=== PATIENT | female | born 1995 | race Caucasian/White ===

== ENCOUNTER 2021-04-07 06:27 | Observation (INO) | payer BC, SELFPAY ==
[2021-04-07] VITALS (34 sets, daily range): BP systolic 111–135; BP diastolic 63–96; PULSE 62–97; RESP 10–21; TEMP 36.1–37.2; O2SAT 0–100; BMI 20.5
--- NOTE | ~2021-04-07 | CT_ITS ---
EXAMINATION: CT abdomen pelvis w con INDICATION: Right lower quadrant pain TECHNIQUE: Computed tomographic images of the abdomen and pelvis were obtained after the administrati on of 100 cc of Omnipaque 350 intravenous contrast. The dose-length product (DLP) was 206.03 mGy-cm. Automated exposure control and iterative reconstruction technique were employed. COMPARISON: None available FINDINGS: The lung bases are clear. The heart size is normal. The liver, spleen, pancreas, gallbladde r, and adrenal glands are normal. The kidneys are unremarkable. No pathologically enlarged abdominal or pelvic lymph nodes are identified. There is no free intraperitoneal gas or evidence of bowel obstr uction. The dilated appendix measures up to 9 mm. There is edematous stranding of the periappendiceal fat. No perforation or periappendiceal abscess is identified. There is a small amount of inflammator y fluid of the right lower quadrant tracking into the pelvis. IMPRESSION: 1. Acute appendicitis. These findings were discussed with Dr. Eric Adams MD in the Emergency Department at 0848 hours on 04/07/2021. Reviewed, dictated and finalized at location B.
--- NOTE | 2021-04-07 07:07 | PC.NURSE ---
attempted to obtain urine. Pt states she does not have to pee at this time.
[2021-04-07 07:21] LABS: Basophils Absolute Auto 0.1 K/mm3 (0.0-0.1); Basophils Percent Auto 0.3 % (0.2-1.2); Hematocrit 39.6 % (37.0-47.0); Hemoglobin 13.7 g/dL (12.0-15.0); Immature Granulocyte Absolute 0.11 K/mm3 (0.00-0.031); Immature Granulocyte Percent A 0.6 % (0-0.5); Lymphocytes Absolute Auto 0.66 K/mm3 (0.9-3.2); Lymphocytes Percent Auto 3.8 % (18.3-44.2); Mean Corpuscular HGB Conc 34.6 g/dl (32-36); Mean Corpuscular Hemoglobin 31.5 pg (26-34); Mean Platelet Volume 10.4 fl (7.4-10.4); Monocytes Absolute Auto 1.1 K/mm3 (0.1-0.6); Monocytes Percent Auto 6.1 % (2.6-8.5); Neutrophils Absolute Auto 15.6 K/mm3 (1.3-6.7); Neutrophils Percent Auto 89.2 % (45.5-73.1); Platelet Count Result 236 k/mm3 (150-375); Red Blood Count 4.35 M/mm3 (4.2-5.4); Red Cell Distribution Width 12.2 % (11.5-14.5); White Blood Count 17.5 K/mm3 (4.5-10.0)
[2021-04-07 07:26] LABS: Add Urine Microscopic? YES; Appearance Urine Cloudy (Clear); Bacteria Urine Trace /hpf; Bilirubin Urine Negative (Negative); Blood Urine Negative (Negative); Color Urine Yellow (Yellow); Glucose Urine UA Negative (Negative); Ketones Urine 1+ mg/dL (Negative); Leukocyte Esterase Ur Negative LEU/UL (Negative); Mucus Urine Heavy /lpf; Nitrate Urine Negative (Negative); Protein Urine 2+ mg/dL (Negative); Squamous Epithelial Cell Urine Many /hpf (Few); Urobilinogen Urine Negative mg/dL (<2.0)
[2021-04-07 07:33] LABS: Alanine Aminotransferase 12 U/L (4-35); Albumin Level 4.4 g/dL (3.5-5.1); Alkaline Phosphatase 54 U/L (38-126); Anion Gap 10 mmol/L (8-16); Aspartate Amino Transferase 27 U/L (14-36); Bilirubin,Total 0.8 mg/dL (0.2-1.3); Blood Urea Nitrogen 6 mg/dL (7-17); Calcium 9.6 mg/dL (8.4-10.2); Carbon Dioxide 24 mmol/L (22-30); Chloride 102 mmol/L (98-107); Estimated CRCL calculation 104 ml/min; Estimated Glomerular Filt Rate > 60; Glucose 137 mg/dL (65-105); Lipase 25 U/L (23-300); Potassium 3.4 mmol/L (3.4-5.0); Sodium 136 mmol/L (137-145)
[2021-04-07] MEDS: MORPHINE SULFATE (*CRX) 4 MG/ML INJ IV PUSH ×3 (07:35→17:39)
[2021-04-07] MEDS: ONDANSETRON INJ 4 MG/2 ML VIAL IV PUSH ×2 (07:35→17:39)
[2021-04-07 08:15] LABS: Beta HCG Quantitative < 2.39 mIU/ML
--- NOTE | 2021-04-07 08:47 | ED.ABDPAIN ---
HPI - Abdominal Pain General Chief Complaint: Abdominal Pain Stated Complaint: Lower abd pain Time Seen by Provider: 04/07/21 07:01 History of Present Illness HPI narrative: Patient is a 25-year-old female who presents ER with right lower quadrant abdominal pain. Symptoms began early this morning. Persistent and without radiation. Worse with twisting and moving. Sharp with moving and aching when sitting still. No fevers or chills. Denies nausea or vomiting or diarrhea. Has not had similar symptoms previously. No vaginal discharge/bleeding. Does not think that she is but reports its possibility. Related Data Home Medications Medication Instructions Recorded Confirmed No Home Medications 04/07/21 04/07/21 Allergies Allergy/AdvReac Type Severity Reaction Status Date / Time No Known Allergies Allergy Verified 04/07/21 14:02 Review of Systems Review of Systems: All systems reviewed & are unremarkable except as noted in HPI and below Constitutional: Constitutional: Denies chills and Denies fever(s) Gastrointestinal: Gastrointestinal: Reports abdominal pain, Denies diarrhea, Denies nausea and Denies vomiting Genitourinary: Genitourinary: Denies nocturia, Denies dysuria and Denies flank pain PMFSH Past Medical History Medical History (Updated 04/07/21 @ 17:13 by Eric Adams MD) Chest wall hematoma Healthy female adult Surgical History Surgical History (Updated 04/07/21 @ 14:15 by Rony Bergeron MD) [place] teeth extracted Family History Family History Father Hypertension Grandparent Family history of psoriasis Family history of malignant neoplasm of ovary Hypertension Cirrhosis History of blood clots Diabetes mellitus Social History Social History Social History: 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 Lifelong non-smoker. Drinks alcohol only occasionally/socially. No illicit drug use. Patient wishes to be a full code. Smoking status: Never smoker Second hand tobacco smoke exposure: Yes Alcohol intake: current Drinks per week: 4 Substance use: never Substance use type: does not use Spiritual care concerns: No Exam Narrative: Exam Narrative: GENERAL: Well-appearing, well-nourished, and in no acute distress. HEAD: Normocephalic, atraumatic. ENT: Mucous membranes moist. CHEST: Clear to auscultation. No respiratory distress. HEART: Regular rate and rhythm. Normal peripheral pulses. ABDOMEN: Soft, TTP in the RLQ at McBurney's point, nondistended, normal active bowel sounds. EXTREMITIES: Normal range of motion. No edema. SKIN: Warm, dry, no rash. NEURO: Alert and oriented x3. PSYCH: Normal mood and affect. Course Course Emergency Course: Admit to general surgery. Zosyn ordered. Patient will go to the operating room today and has been n.p.o. since this morning. Vital Signs Vital signs: Vital Signs Temperature 97.9 F 04/07/21 06:36 Pulse Rate 74 04/07/21 06:36 Respiratory Rate 20 04/07/21 06:36 Blood Pressure 131/96 H 04/07/21 06:36 Pulse Oximetry 100 04/07/21 06:36 Temperature 97.5 F L 04/07/21 16:10 Pulse Rate 71 04/07/21 17:05 Respiratory Rate 14 04/07/21 17:05 Blood Pressure 128/79 04/07/21 17:05 Pulse Oximetry 96 04/07/21 17:05 MDM - Abdominal Pain Lab Data Result diagrams: 04/07/21 07:08 04/07/21 07:08 Labs: Lab Results 04/07/21 04/07/21 04/07/21 Range/Units 07:08 07:08 07:08 WBC 17.5 H (4.5-10.0) K/mm3 RBC 4.35 (4.2-5.4) M/mm3 Hgb 13.7 (12.0-15.0) g/dL Hct 39.6 (37.0-47.0) % MCV 91.0 (80-100) fl MCH 31.5 (26-34) pg MCHC 34.6 (32-36) g/dl RDW 12.2 (11.5-14.5) % Plt Count 236 (150-375) k/mm3 MPV 10.4 (7.4-10.4) fl Immature Gran % (Auto) 0.6 H (0-0.5) % Neut % (Auto) 89.2 H (45.5-
--- NOTE | 2021-04-07 10:56 | PM.IMHP ---
H&P: HPI History of Present Illness Date/Time: 04/07/21 10:56 Chief Complaint: RLQ abdominal pain Narrative: This is a 25-year-old otherwise healthy female, who presented to the ER this morning with complaints of RLQ abdominal pain. She reports an onset of generalized abdominal pain around 3:00 am this morning. Her pain progressively worsened and began to localize to the RLQ. She had associated nausea, vomiting, and chills. Due to the persistent pain, she presented to the ER for evaluation. CT scan of the abdomen and pelvis showed evidence of acute uncomplicated appendicitis. Her labs revealed leukocytosis with a white blood cell count of 17,500. Beta HCG negative. The ER physician consulted our service to evaluate the patient for acute appendicitis. She is now seen in the ER. She reports the IV analgesics have improved her abdominal pain, but it is starting to return. No other complaints at this time. She has been given one dose of IV Zosyn in the ER. Review of Systems Review of Systems: All systems reviewed & are unremarkable except as noted in HPI and below Constitutional: Constitutional: Reports as per HPI, Reports chills, Denies fatigue and Denies fever(s) ENT: Reports system reviewed and no additional complaints, except as documented and Reports Normal hearing present Cardiovascular: Cardiovascular: Reports no additional cardiovascular complaints, Denies chest pain and Denies leg edema Respiratory: Respiratory: Reports no additional respiratory complaints, Denies cough and Denies dyspnea Gastrointestinal: Gastrointestinal: Reports as per HPI, Reports no additional gastrointestinal complaints, Reports abdominal pain, Denies change in bowel habits, Denies change in stool character, Denies constipation, Denies diarrhea and Reports vomiting Genitourinary: Genitourinary: Denies hematuria and Denies dysuria Musculoskeletal: Musculoskeletal: Denies abnormal gait, Denies deformity, Denies joint swelling, Denies numbness and Denies tingling Integumentary/Breasts: Skin/Breast: Denies wounds and Denies jaundice Neurologic: Reports system reviewed and no additional complaints, except as documented, Denies focal weakness, Denies numbness and Denies tingling PMFSH Past Medical History Medical History Healthy female adult Surgical History Surgical History No history of previous surgery Family History Family History Father Hypertension Grandparent Hypertension Family history of psoriasis Family history of malignant neoplasm of ovary Social History Social History Social History: 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 Lifelong non-smoker. Drinks alcohol only occasionally/socially. No illicit drug use. Patient wishes to be a full code. Smoking status: Never smoker Alcohol intake: current Meds Home Medications and Allergies Allergies Allergy/AdvReac Type Severity Reaction Status Date / Time No Known Allergies Allergy Verified 04/07/21 06:40 Vital Signs Vital Signs - 24 hr 04/07/21 06:36 04/07/21 07:40 04/07/21 07:51 Temperature 97.9 F Pulse Rate 74 62 72 Respiratory Rate 20 10 L 15 Blood Pressure 131/96 H 116/75 Pulse Oximetry 100 100 100 04/07/21 08:00 04/07/21 08:01 04/07/21 08:15 Temperature Pulse Rate 67 65 69 Respiratory Rate 15 21 H 18 Blood Pressure 114/78 Pulse Oximetry 95 97 98 04/07/21 08:16 04/07/21 08:43 04/07/21 08:45 Temperature Pulse Rate 78 88 85 Respiratory Rate 16 15 17 Blood Pressure 111/63 Pulse Oximetry 98 100 99 04/07/21 08:46 04/07/21 09:12 04/07/21 09:15 Temperature Pulse Rate 79 97 71 Respiratory Rate 17 19 15 Blood Pressure 124/95 H Pulse Oximetry 99 98 99 04/07/21 09:16 04/07/21 09:30 03/12
--- NOTE | 2021-04-07 12:11 | ADMGEN ---
This patient, Natasha Nicole, was admitted to 2 Medical Room 261-01. Patient/family oriented to hospital policies and general routines including ID bracelet, bed and alarms, visiting hours, pain management, procedures, bathroom and other care routines, personal items, smoking policy, room service/diet, and visiting hours. Information on how to activate the Rapid Response Team has been discussed. Patient/Family are encouraged to report perceived risks to care and to ask questions if they do not understand what they are told or what they should do.
[2021-04-07] MEDS: SODIUM CHLORIDE 0.9% IV 1,000 ML 125 ML IV CONT (12:21)
--- NOTE | 2021-04-07 13:40 | PC.NURSE ---
To OR via stretcher with OR staff. SBAR sent to surgery earlier.
[2021-04-07] MEDS: LACTATED RINGERS 1,000 ML 30 ML IV CONT ×2 (14:00→16:10)
--- NOTE | 2021-04-07 14:15 | WPDANESEPPF ---
Anes - Initial Pre Proc Eval Procedure: Operation Date: 04/07/21 15:00 Proposed Procedures p Laparoscopic Appendectomy - Jessee Rodríguez DO Date/Time: 04/07/21 14:15 Surgeon: Jessee Rodríguez DO Pre Op Diagnosis: appendicitis Patient Data Age: 25 Gender: F Height: 1.63 m Weight: 54.4 kg Last Vital Signs Temp 37.2 C 04/07/21 14:04 Pulse 72 04/07/21 14:04 Resp 16 04/07/21 14:04 BP 123/68 04/07/21 14:04 Pulse Ox 98 04/07/21 14:04 Allergies Allergy/AdvReac Type Severity Reaction Status Date / Time No Known Allergies Allergy Verified 04/07/21 14:02 Home Medications Medication Instructions Recorded Confirmed Type No Home Medications 04/07/21 04/07/21 History Laboratory Tests 04/07/21 04/07/21 04/07/21 07:08 07:08 07:08 WBC 17.5 K/mm3 H K/mm3 (4.5-10.0) RBC 4.35 M/mm3 M/mm3 (4.2-5.4) Hgb 13.7 g/dL g/dL (12.0-15.0) Hct 39.6 % % (37.0-47.0) MCV 91.0 fl fl (80-100) MCH 31.5 pg pg (26-34) MCHC 34.6 g/dl g/dl (32-36) RDW 12.2 % % (11.5-14.5) Plt Count 236 k/mm3 k/mm3 (150-375) MPV 10.4 fl fl (7.4-10.4) Immature Gran % (Auto) 0.6 % H % (0-0.5) Neut % (Auto) 89.2 % H % (45.5-73.1) Lymph % (Auto) 3.8 % L % (18.3-44.2) Gaines % (Auto) 6.1 % % (2.6-8.5) Eos % (Auto) 0.0 % % (0-4.4) Baso % (Auto) 0.3 % % (0.2-1.2) Lymph # (Auto) 0.66 K/mm3 L K/mm3 (0.9-3.2) Gaines # (Auto) 1.1 K/mm3 H K/mm3 (0.1-0.6) Eos # (Auto) 0.0 K/mm3 K/mm3 (0-0.3) Baso # (Auto) 0.1 K/mm3 K/mm3 (0.0-0.1) Abs Immat Gran (auto) 0.11 K/mm3 H K/mm3 (0.00-0.031) Absolute Neuts (auto) 15.6 K/mm3 H K/mm3 (1.3-6.7) Absolute Nucleated RBC 0.0 K/mm3 K/mm3 (0.0-0.012) Nucleated RBC % 0.0 % % (0.0-0.2) Sodium 136 mmol/L L mmol/L (137-145) Potassium 3.4 mmol/L mmol/L (3.4-5.0) Chloride 102 mmol/L mmol/L (98-107) Carbon Dioxide 24 mmol/L mmol/L (22-30) Anion Gap 10 mmol/L mmol/L (8-16) BUN 6 mg/dL L mg/dL (7-17) Creatinine 0.60 mg/dL L mg/dL (0.7-1.0) Estim Creat Clear Calc 104 ml/min ml/min Estimated GFR > 60 (59 - ) Glucose 137 mg/dL H mg/dL (65-105) Calcium 9.6 mg/dL mg/dL (8.4-10.2) Total Bilirubin 0.8 mg/dL mg/dL (0.2-1.3) AST 27 U/L U/L (14-36) ALT 12 U/L U/L (4-35) Alkaline Phosphatase 54 U/L U/L (38-126) Total Protein 7.0 g/dL g/dL (6.3-8.2) Albumin 4.4 g/dL g/dL (3.5-5.1) Lipase 25 U/L U/L (23-300) Beta HCG, Quant < 2.39 mIU/ML mIU/ML Urine Color Urine Appearance Urine pH Ur Specific [place] Urine Protein Urine Glucose (UA) Urine Ketones Ur Blood (Man) Urine Nitrate Urine Bilirubin Urine Urobilinogen Leukocyte Esterase Rfl Urine RBC Urine WBC Ur Squamous Epith Cells Urine Bacteria Urine Mucus 04/07/21 07:09 WBC RBC Hgb Hct MCV MCH MCHC RDW Plt Count MPV Immature Gran % (Auto) Neut % (Auto) Lymph % (Auto) Gaines % (Auto) Eos % (Auto) Baso % (Auto) Lymph # (Auto) Gaines # (Auto) Eos # (Auto) Baso # (Auto) Abs Immat Gran (auto) Absolute Neuts (auto) Absolute Nucleated RBC Nucleated RBC % Sodium Potassium Chloride Carbon Dioxide Anion Gap BUN Creatinine Estim Creat Clear Calc Estimated GFR Glucose
[2021-04-07] MEDS: SCOPOLAMINE 1.5 MG PATCH TRANSDERM (14:20)
--- NOTE | 2021-04-07 15:05 | WPDHPUPDATE1 ---
History and Physical Update Update Date/Time: 04/07/21 15:05 History and Physical has been reviewed, including an updated exam of the patient. There are NO changes in the patient's condition. Risks, benefits, and alternatives have been discussed and questions answered. Patient agrees to proceed with procedure.
[2021-04-07] MEDS: KETOROLAC 30 MG/ML VIAL (*BKC) IV PUSH (15:49)
[2021-04-07] MEDS: BUPIVACAINE/EPINEPHRINE 0.5% 10 ML VIAL 14 ML INFILTRATE (15:51)
--- NOTE | 2021-04-07 16:14 | W.PM.PROC2 ---
Procedure Note - Detailed Date of Procedure 04/07/21 Pre-op Diagnosis Acute appendicitis Post-op Diagnosis same Procedure Performed Laparoscopic appendectomy Surgeon Jessee Rodríguez, DO Anesthesia general and local (0.5% bupivacaine with epinephrine) Indications this is a 25-year-old woman who presented to the emergency department this morning with complaints of right lower quadrant pain. Her pain woke her from sleep around 3:00 a.m. this morning. She has never experienced anything like this before. In the emergency department she was found to have evidence of acute appendicitis on CT in she did have an elevated white blood count with focal tenderness to the right lower quadrant. Discussions were made with the patient about her treatment options and decision was made to proceed with laparoscopic appendectomy, possible open. Findings Laparoscopic appendectomy was performed. The appendix was identified in the right lower quadrant and appeared to be dilated and indurated. The base of the appendix appeared healthy and viable. There was no evidence of perforation or abscess. The appendix was removed and sent to the lab for pathology. Upon inspecting the pelvis there was no evidence purulence fluid, however there did appear to be 1 or 2 tiny areas of possible endometriosis. Description of Procedure Procedure as well as risks, benefits, and alternatives were explained to the patient. The patient agreed to proceed. Written consent was obtained and placed in chart prior to procedure. The patient was brought back to surgical suite. She was placed supine on operating table. Time-out was done to confirm the patient and procedure. The patient was then intubated by the Anesthesia Department. her abdomen was prepped and draped in sterile fashion using chlorhexidine prep. A 12 mm incision was made at the inferior portion of the umbilicus. Blunt dissection was carried out down to the linea alba. The linea alba was then incised using a 15 blade scalpel. Then bluntly entered into the peritoneal cavity. A 12 mm trocar was then inserted, and carbon dioxide insufflation was used to create a pneumoperitoneum. The camera was inserted and the abdomen was inspected. No immediate abnormalities were identified. The patient was then placed in slight Trendelenburg position and rotated to the left. A 5 mm incision was made in the suprapubic region in midline and a 5 mm trocar was inserted under direct visualization. A 5 mm incision was made in the left lower quadrant and a 5 mm trocar was inserted under direct visualization. The right lower quadrant was carefully inspected. The cecum was identified and then this was traced back to the appendix. The appendix was identified and grasped at the mesoappendix and lifted anteriorly. Careful blunt dissection was carried out at the base of the appendix through the mesoappendix using a [place] grasper. An Endo-BRII 45 mm blue load stapler was then advanced across the base of the appendix and clamped and fired. A white reload was then clamped across the mesoappendix and fired. This freed up our appendix completely. It was then placed in an EndoCatch bag and removed through the umbilical port. The staple lines were then inspected. Hemostasis appeared adequate and the staple lines appeared secure. The area was then irrigated with sterile saline. The pelvis was then carefully inspected and irrigated with sterile saline as well and the remainder of the abdomen was carefully inspected. The patient was then flattened out in bed. One final inspection was made around the abdominal cavity and no other abnormalities were seen. The ports were then removed under direct visualization. The camera was removed and the pneumoperitoneum was released. The fascia of the umbilical incision was reapproximated using an 0 Vicryl [id number] suture. 0.5% bupivacaine with epinephrine was infiltrated locally around each of the incisions. The
--- NOTE | 2021-04-07 17:15 | PC.NURSE ---
Received patient from OR via stretcher with OR staff. Settled in bed. No distress noted. C/O abdominal pain 02/17.
[2021-04-07] MEDS: LACTATED RINGERS 1,000 ML 100 ML IV CONT (17:38)
[2021-04-07] MEDS: HYDROcodone/acetaminophen (*CRX) 5-325 MG TABLET 1 TAB PO (19:03)
--- NOTE | 2021-04-07 21:06 | PC.NURSE ---
PT COMPLETED ALL DISCHARGE ORDERS. PAIN CONTROLLED, TOLERATING DIET WELL, VITAL SIGNS STABLE AND WALKED THE HALLS. DISCHARGED PT AT 2105 TO PRIVATE VE[facility]IV[facility] HOME BY MOTHER.
--- NOTE | 2021-04-15 14:42 | PM.DS ---
DS: Admitting Diagnosis Admitting Diagnosis Admitting Diagnosis: Acute appendicitis DS: Discharge Diagnosis Discharge Diagnosis (1) Acute appendicitis with localized peritonitis, without perforation or abscess: Qualifiers: Appendicitis gangrene presence: without gangrene Qualified Code(s): K35.30 - Acute appendicitis with localized peritonitis, without perforation or gangrene Code(s): K35.30 - Acute appendicitis with localized peritonitis, without perforation or gangrene Status: Acute DS: Summary Hospital Course Reason for hospitalization: Acute appendicitis Hospital Course: This is a 25 yo woman who presented to the ED on 04/07/2021 with RLQ pain. Workup in the ED showed evidence of an elevated WBC and CT showed acute uncomplicated appendicitis. She was started on broad spectrum IV antibiotics and was admitted for further treatment. Laparoscopic appendectomy was performed on 04/07 and she was returned to the surgical floor postoperatively. Diet and activity were advanced as tolerated. Later that evening, she was tolerating her diet, ambulating, vitals were stable, and pain was controlled. She was discharged on 04/07. Status at Discharge Functional status at discharge: independent ambulation Overall status at discharge: patient is progressing back to baseline Time Spent with Patient Time attestation: Total time spent providing and/or coordinating discharge services: Time spent: Less than 30 minutes Exam Narrative: Exam Narrative: Unchanged from AM exam, except for surgical changes. DS: Data Data Completed and Pending Completed studies during hospitalization: Pending at discharge 04/07/21 15:52 Surgical [PTH] Routine Imaging Radiologist's impression: ITS Impressions Abdomen/Pelvis CT 04/07/21 08:34 IMPRESSION: 1. Acute appendicitis. These findings were discussed with Dr. Eric Adams MD in the Emergency Department at 0848 hours on 04/07/2021. Discharge Plan Discharge Attending physician on discharge: Jessee Blank Consulting providers: Toan Solis ; Domingo Hand ; Fatoumata Bull Discharging Clinician: Jessee Blank Patient Disposition: Home, Self-Care Activity: other - see discharge instructions Diet: as tolerated Wound Care Instructions: follow printed instructions Discharge Instructions: DISCHARGE INSTRUCTION SHEET FOR HERNIA, GALLBLADDER AND APPENDIX SURGERIES DR. BLANK PATIENT TO TAKE HOME 1. May shower in 24 hours, no soaking in bath x 2weeks. 2. Call office for: Wound increasingly painful or bleeding Vomiting Fever of greater than 101 degrees 3. If no bowel movement for three days, take 1 oz. (30 ml) Milk of Magnesia or MiraLax 17g 1 to 2 times daily. 4. No heavy lifting > 10-15 pounds x weeks for hernia repairs and 2 weeks for laparoscopic cholecystectomy or appendectomy. 5. No driving for 3 days or while taking narcotic pain medications. 6. Ice to surgical site for 48 hours (30 min on, then 30 min off). 7. Up walking 10-30 minutes three times per day. 8. Resume previous home medications. 9. Follow-up 10-14 days in office for wound check or as previously scheduled. ([phone]) 10. Oral pain medications prescription to be sent to pharmacy. Take Tylenol 500mg every 6 hours and Ibuprofen 600mg every 6 hours for the first 2 days, then as needed. 11. NUTRITION: Start out by drinking fluids and increase your diet as tolerated. If you experience nausea, try dry toast, crackers, and 7-UP. If nausea or vomiting persists, contact your surgeon?s office. 12. Gallbladders-Low Fat Diet for 2 weeks (send care note of low fat diet) 13. Inguinal Hernias-wear scrotal support for 48 hours 14. Abdominal Hernias-if sent home with abdominal binder, wear for the first 2 weeks (may remove to shower or at night to sleep).
== END 2021-04-07 21:05 | disposition home or self-care (01) ==
LOC: ANHED 10:51 → ANH2MED 11:38
PROVIDERS: Admitting Provider Surgery; Emergency Provider Emergency Medicine; Visit Provider Surgery
PROC: 0DTJ4ZZ Resection of Appendix, Percutaneous Endoscopic Approach (ICD-10-PCS; CPT 44970; principal; 2021-04-07 15:00)
DX: K35.30 Acute appendicitis with localized peritonitis, without perforation or gangrene (principal)
CPT/HCPCS: 44970; 36415; 74177; 80053; 81001; 83690; 84702; 85025; 88304; 96365; 96375; 96376; 99285; A9270; G0378; J0131; J0330; J1100; J1885; J2250; J2270; J2405; J2543; J2704; J3010; J7030; J7120; Q9967